=== PATIENT | female | born 1970 | race Caucasian/White ===

== ENCOUNTER 2018-01-02 12:46 | Emergency (ER) | payer OTHER ==
[~2018-01-02] VITALS: Ht 154.9 cm; Wt 68.0 kg
[~2018-01-02 12:46] MED LIST: NEURONTIN 300300 M1 PO; PHENERGAN 25 MG25 M1 PO; TAPAZOLE5 MG PO; TRAMADOL 50 MG50 MG PO; TRAZODONE 150150 M1 PO
[2018-01-02] MEDS ORDERED: AMLODIPINE BESY10 MG PO (12:57)
[2018-01-02 14:51] VITALS: BP 155/77
== END 2018-01-02 14:52 | disposition home or self-care (01) ==
LOC: M.ERS 12:46
DX: M79.605 Pain in left leg (principal); R03.0 Elevated blood-pressure reading, without diagnosis of hypertension; G25.81 Restless legs syndrome; F17.200 Nicotine dependence, unspecified, uncomplicated; Z90.49 Acquired absence of other specified parts of digestive tract; Z90.710 Acquired absence of both cervix and uterus; Z98.890 Other specified postprocedural states; Z88.6 Allergy status to analgesic agent

== ENCOUNTER → 2018-10-13 | Outpatient (CLI) | payer OTHER ==
[~2018-10-13] MED LIST changes: +AMLODIPINE BESY10 MG PO
== END ==
LOC: M.RAD 13:52
DX: Z12.31 Encounter for screening mammogram for malignant neoplasm of breast (principal)

== ENCOUNTER → 2019-09-10 | Outpatient (CLI) | payer OTHER | LOC: M.ULTRA 14:49 | DX: N60.12 Diffuse cystic mastopathy of left breast (principal); N60.11 Diffuse cystic mastopathy of right breast ==

== ENCOUNTER → 2019-11-19 | Outpatient (CLI) | payer OTHER ==
[~2019-11-19] MED LIST changes: +CYMBALTA20 MG PO; +NEURONTIN 300M300 M2 PO; +NEW BP MED; +NORCO 5-325 TA1 EAC1 PO; +OMEPRAZOLE40 MG PO; +PULMICORT0.5 MG/2 M; +REPATHA SU140 MG/1 M SUBQ; +VENTOLIN HFA 1818 GM INH; +ZANAFLEX4 M1 PO; +ZANTAC 150MG T150 M1 PO
== END ==
LOC: M.PC 11:05
DX: M47.812 Spondylosis without myelopathy or radiculopathy, cervical region (principal); M47.816 Spondylosis without myelopathy or radiculopathy, lumbar region; F11.90 Opioid use, unspecified, uncomplicated

== ENCOUNTER → 2020-01-02 | Outpatient (CLI) | payer OTHER | LOC: M.PC 04:20 | DX: M47.812 Spondylosis without myelopathy or radiculopathy, cervical region (principal); M47.816 Spondylosis without myelopathy or radiculopathy, lumbar region; M18.11 Unilateral primary osteoarthritis of first carpometacarpal joint, right hand ==

== ENCOUNTER → 2020-03-05 | Outpatient (CLI) | payer OTHER | LOC: M.PC 01:47 | DX: M47.812 Spondylosis without myelopathy or radiculopathy, cervical region (principal); M47.816 Spondylosis without myelopathy or radiculopathy, lumbar region; M79.641 Pain in right hand; M19.041 Primary osteoarthritis, right hand; F17.210 Nicotine dependence, cigarettes, uncomplicated; F10.10 Alcohol abuse, uncomplicated; Z79.899 Other long term (current) drug therapy ==

== ENCOUNTER → 2020-04-02 | Outpatient (CLI) | payer OTHER ==
[~2020-04-02] MED LIST changes: +TOPROL XL50 MG PO
== END | disposition home or self-care (01) ==
LOC: M.PC 04:39
PROVIDERS: ATTEND Physical Medicine & Rehabilitation
DX: M47.812 Spondylosis without myelopathy or radiculopathy, cervical region (principal); G89.29 Other chronic pain; F17.210 Nicotine dependence, cigarettes, uncomplicated; Z98.890 Other specified postprocedural states; Z90.49 Acquired absence of other specified parts of digestive tract; Z90.710 Acquired absence of both cervix and uterus; Z79.899 Other long term (current) drug therapy

== ENCOUNTER → 2020-04-16 | Outpatient (CLI) | payer OTHER ==
[~2020-04-16] MED LIST changes: +NORCO 5-325 TA1 EAC2 PO
== END ==
LOC: M.PC 03:33
PROVIDERS: ATTEND Physical Medicine & Rehabilitation
DX: M43.16 Spondylolisthesis, lumbar region (principal); M47.816 Spondylosis without myelopathy or radiculopathy, lumbar region; M51.36 Other intervertebral disc degeneration, lumbar region; M79.641 Pain in right hand; Z88.8 Allergy status to other drugs, medicaments and biological substances; Z79.899 Other long term (current) drug therapy

== ENCOUNTER → 2020-05-14 | Outpatient (CLI) | payer OTHER | LOC: M.PC 05:18 | PROVIDERS: ATTEND Physical Medicine & Rehabilitation | DX: M43.16 Spondylolisthesis, lumbar region (principal); M51.36 Other intervertebral disc degeneration, lumbar region; M47.816 Spondylosis without myelopathy or radiculopathy, lumbar region; M79.641 Pain in right hand; F10.10 Alcohol abuse, uncomplicated; F17.210 Nicotine dependence, cigarettes, uncomplicated; Z79.899 Other long term (current) drug therapy ==

== ENCOUNTER → 2020-07-09 | Outpatient (CLI) | payer OTHER | LOC: M.PC 08:40 | PROVIDERS: ATTEND Physical Medicine & Rehabilitation | DX: M43.17 Spondylolisthesis, lumbosacral region (principal); M47.816 Spondylosis without myelopathy or radiculopathy, lumbar region; M47.812 Spondylosis without myelopathy or radiculopathy, cervical region; M51.36 Other intervertebral disc degeneration, lumbar region; M13.841 Other specified arthritis, right hand; Z79.891 Long term (current) use of opiate analgesic; Z79.899 Other long term (current) drug therapy ==

== ENCOUNTER → 2020-07-30 | Outpatient (CLI) | payer OTHER | END | disposition home or self-care (01) | LOC: M.PC 09:58 | PROVIDERS: ATTEND Physical Medicine & Rehabilitation | DX: M54.5 Low back pain (principal); M47.816 Spondylosis without myelopathy or radiculopathy, lumbar region; G89.29 Other chronic pain; Z98.890 Other specified postprocedural states; Z90.710 Acquired absence of both cervix and uterus; Z98.51 Tubal ligation status; Z79.899 Other long term (current) drug therapy; Z79.891 Long term (current) use of opiate analgesic ==

== ENCOUNTER → 2020-08-06 | Outpatient (CLI) | payer OTHER | END | disposition home or self-care (01) | LOC: M.PC 10:09 | PROVIDERS: ATTEND Physical Medicine & Rehabilitation | DX: M47.816 Spondylosis without myelopathy or radiculopathy, lumbar region (principal); M25.531 Pain in right wrist; Z98.890 Other specified postprocedural states; Z79.899 Other long term (current) drug therapy; Z88.8 Allergy status to other drugs, medicaments and biological substances ==

== ENCOUNTER → 2020-08-20 | Outpatient (CLI) | payer OTHER | LOC: M.PC 10:19 | PROVIDERS: ATTEND Physical Medicine & Rehabilitation | DX: M43.17 Spondylolisthesis, lumbosacral region (principal); M51.36 Other intervertebral disc degeneration, lumbar region; M47.816 Spondylosis without myelopathy or radiculopathy, lumbar region; M47.812 Spondylosis without myelopathy or radiculopathy, cervical region; M53.3 Sacrococcygeal disorders, not elsewhere classified; F17.200 Nicotine dependence, unspecified, uncomplicated; F10.10 Alcohol abuse, uncomplicated; Z79.899 Other long term (current) drug therapy ==

== ENCOUNTER → 2020-09-08 | Outpatient (CLI) | payer OTHER | END | disposition home or self-care (01) | LOC: M.PC 10:26 | PROVIDERS: ATTEND Physical Medicine & Rehabilitation | DX: M53.3 Sacrococcygeal disorders, not elsewhere classified (principal); M54.5 Low back pain; M51.16 Intervertebral disc disorders with radiculopathy, lumbar region; M47.26 Other spondylosis with radiculopathy, lumbar region; M43.16 Spondylolisthesis, lumbar region; Z98.890 Other specified postprocedural states; Z79.899 Other long term (current) drug therapy ==

== ENCOUNTER → 2020-10-15 | Outpatient (CLI) | payer OTHER | END | disposition home or self-care (01) | LOC: M.PC 09:34 | PROVIDERS: ATTEND Physical Medicine & Rehabilitation | DX: M53.3 Sacrococcygeal disorders, not elsewhere classified (principal); M46.1 Sacroiliitis, not elsewhere classified; M47.898 Other spondylosis, sacral and sacrococcygeal region; M54.5 Low back pain; F17.210 Nicotine dependence, cigarettes, uncomplicated; Z98.890 Other specified postprocedural states; Z79.899 Other long term (current) drug therapy; Z90.49 Acquired absence of other specified parts of digestive tract; Z98.51 Tubal ligation status; Z90.710 Acquired absence of both cervix and uterus ==

== ENCOUNTER → 2020-11-26 | Outpatient (CLI) | payer OTHER ==
[~2020-11-26] MED LIST changes: +HYDROCODON-ACE1 EAC7 PO
== END ==
LOC: M.LAB 07:56
PROVIDERS: ATTEND Physical Medicine & Rehabilitation
DX: Z01.812 Encounter for preprocedural laboratory examination (principal); Z20.822 Contact with and (suspected) exposure to COVID-19

== ENCOUNTER → 2020-12-08 | Outpatient (CLI) | payer OTHER ==
[~2020-12-08] MED LIST changes: +HYDROCODON-ACE1 EAC8 PO
== END ==
LOC: M.PC 08:30
PROVIDERS: ATTEND Physical Medicine & Rehabilitation
DX: M51.36 Other intervertebral disc degeneration, lumbar region (principal); M70.61 Trochanteric bursitis, right hip; M19.90 Unspecified osteoarthritis, unspecified site; M53.3 Sacrococcygeal disorders, not elsewhere classified; M47.812 Spondylosis without myelopathy or radiculopathy, cervical region; M43.16 Spondylolisthesis, lumbar region; Z88.8 Allergy status to other drugs, medicaments and biological substances; Z79.899 Other long term (current) drug therapy

== ENCOUNTER → 2020-12-10 | Outpatient (CLI) | payer OTHER | END | disposition home or self-care (01) | LOC: M.PC 12:35 | PROVIDERS: ATTEND Physical Medicine & Rehabilitation | DX: M70.61 Trochanteric bursitis, right hip (principal); M19.041 Primary osteoarthritis, right hand; M25.551 Pain in right hip; M79.641 Pain in right hand; F17.210 Nicotine dependence, cigarettes, uncomplicated; Z98.890 Other specified postprocedural states; Z79.899 Other long term (current) drug therapy; Z90.710 Acquired absence of both cervix and uterus; Z90.49 Acquired absence of other specified parts of digestive tract ==

== ENCOUNTER → 2020-12-22 | Outpatient (CLI) | payer OTHER | LOC: M.PC 10:41 | PROVIDERS: ATTEND Physical Medicine & Rehabilitation | DX: M70.61 Trochanteric bursitis, right hip (principal); M19.032 Primary osteoarthritis, left wrist; F17.200 Nicotine dependence, unspecified, uncomplicated ==

== ENCOUNTER → 2020-12-31 | Outpatient (CLI) | payer OTHER ==
--- NOTE | 2020-12-31 16:44 | EXE ---
[place] [address] STRESS ECHOCARDIOGRAM Name: VANESA CACERES Servando Room: [facility]#: [id number] Admission: 12/31/20 Attend Phys: Shiva Nelson, Discharge: Date of : 72 Date of Service: 12/31/20 1644 Report #: [id number] THIS REPORT FOR: cc: Isrrael Pagan,Isrrael Cabrera,Shaheed Reyes MD [facility] ~ APPROVED REPORT Study performed: 12/31/2020 15:15:09 Exam: Stress Echocardiogram Indication: Chest pain , Dyspnea Patient Location: Out-Patient Stress Nurse: Lizbeth Brandon RN Supervising Physician: Shaheed Escobedo MD Ht: 5 ft 1 in HR: 95 bpm BP: 134/76 mmHg Medical History Cardiac Risk Factors: Hyperlipidemia, HTN, Tobacco History (Current/Recent) Procedure The patient underwent an Exercise Stress Test using the Roland Protocol. Blood pressure, heart rate, and EKG were monitored. An Echocardiogram was performed by automotive engineering technician in four stages in quad fashion. At peak stress, four selected images were obtained and placed side by side with resting images for comparison. Stress Test Details Stress Test: Exercise stress testing was performed using a Roland protocol. HR Resting HR: 95 bpm Max Heart Rate (APMHR): 171 bpm Max HR Achieved: 150 bpm Target HR (85% APMHR): 145 bpm % of APMHR: 87 Recovery HR: 110 bpm HR response to stress: Normal HR response to stress BP Resting BP: 134/76 mmHg Max BP: 174/89 mmHg Recovery BP: 150/94 [place] [address] STRESS ECHOCARDIOGRAM Name: VANESA CACERES Servando Room: [facility]#: [id number] Admission: 12/31/20 Attend Phys: Shiva Nelson, Discharge: Date of : 72 Date of Service: 12/31/20 1644 Report #: [id number] BP response to stress: Normal blood pressure response to stress. ECG Resting ECG: Sinus Rhythm, nonspecific ST-T abnormalities Stress ECG: Sinus Rhythm, nonspecific ST-T abnormalities ST Change: Upsloping ST depression Maximum ST Deviation: 1 mm Arrhythmia: None Recovery ECG: Sinus Rhythm, nonspecific ST-T abnormalities Recovery ST Change: Upsloping ST depression Recovery ST Deviation: 0.5 mm Recovery Arrhythmia: None Clinical Reason for Termination: Dyspnea, Fatigue,, Leg pain Exercise duration: 9 min 00 sec Highest Stage Achieved: Stage 3: 3.4 mph at 14% grade. Exercise capacity: 10.16 METs Pre-Stress Echo The resting Echocardiogram showed normal left ventricular contractility with an estimated Ejection Fraction of about 60-65%. Post-Stress Echo The stress Echocardiogram showed normal left ventricular contractility with an estimated Ejection Fraction of about >70%. Compared to rest, there were no stress-induced wall motion abnormalities. Conclusion Clinical Response: Non-ischemic Exercise Capacity: Average Stress ECG Response: Indeterminant Stress Echo Images: Non-ischemic low risk stress echo for predicting future cardiac events. Other Information Study Quality: [place] [address] STRESS ECHOCARDIOGRAM Name: VANESA CACERES Room: [facility]#: [id number] Admission: 12/31/20 Attend Phys: Shiva Nelson, Discharge: Date of : 72 Date of Service: 12/31/201643 Report #: [id number] <Conclusion> low risk stress echo for predicting future cardiac events. <ELECTRONICALLY SIGNED> By: Shaheed Escobedo MD, FACC 12/31/201643 43 43 Shaheed Escobedo MD, FACC /INF
== END ==
LOC: M.CRD 14:28
PROVIDERS: ATTEND Internal Medicine Cardiovascular Disease
DX: I10 Essential (primary) hypertension (principal); E78.2 Mixed hyperlipidemia; I65.21 Occlusion and stenosis of right carotid artery

== ENCOUNTER → 2021-01-21 | Outpatient (CLI) | payer OTHER | END | disposition home or self-care (01) | LOC: M.PC 10:30 | PROVIDERS: ATTEND Physical Medicine & Rehabilitation | DX: M16.11 Unilateral primary osteoarthritis, right hip (principal); M25.551 Pain in right hip; G89.29 Other chronic pain; Z98.890 Other specified postprocedural states; Z79.899 Other long term (current) drug therapy ==

== ENCOUNTER → 2021-02-09 | Outpatient (CLI) | payer OTHER | LOC: M.PC 10:05 | PROVIDERS: ATTEND Physical Medicine & Rehabilitation | DX: Z51.81 Encounter for therapeutic drug level monitoring (principal); M25.551 Pain in right hip; M70.61 Trochanteric bursitis, right hip; M25.532 Pain in left wrist; M79.641 Pain in right hand; M19.041 Primary osteoarthritis, right hand; M54.5 Low back pain; M54.2 Cervicalgia; M47.812 Spondylosis without myelopathy or radiculopathy, cervical region; M47.816 Spondylosis without myelopathy or radiculopathy, lumbar region; M43.17 Spondylolisthesis, lumbosacral region; F17.200 Nicotine dependence, unspecified, uncomplicated; F11.20 Opioid dependence, uncomplicated; Z88.8 Allergy status to other drugs, medicaments and biological substances; Z79.899 Other long term (current) drug therapy ==

== ENCOUNTER → 2021-04-13 | Outpatient (CLI) | payer OTHER ==
[~2021-04-13] MED LIST changes: +LISINOPRIL-HCT1 EACH PO; -NEW BP MED; +TOPROL XL100 MG PO; -TOPROL XL50 MG PO
== END | disposition home or self-care (01) ==
LOC: M.PC 10:17
PROVIDERS: ATTEND Physical Medicine & Rehabilitation
DX: M25.521 Pain in right elbow (principal); M77.8 Other enthesopathies, not elsewhere classified; M65.88 Other synovitis and tenosynovitis, other site; F17.210 Nicotine dependence, cigarettes, uncomplicated; Z98.890 Other specified postprocedural states; Z79.899 Other long term (current) drug therapy; Z90.710 Acquired absence of both cervix and uterus; Z90.49 Acquired absence of other specified parts of digestive tract; Z98.51 Tubal ligation status

== ENCOUNTER → 2021-05-13 | Outpatient (CLI) | payer OTHER ==
[~2021-05-13] MED LIST changes: +NORCO5 PO
== END ==
LOC: M.PC 09:30
PROVIDERS: ATTEND Physical Medicine & Rehabilitation
DX: M47.816 Spondylosis without myelopathy or radiculopathy, lumbar region (principal); M43.16 Spondylolisthesis, lumbar region; M70.60 Trochanteric bursitis, unspecified hip; M19.032 Primary osteoarthritis, left wrist; M19.041 Primary osteoarthritis, right hand; M54.2 Cervicalgia; M54.5 Low back pain

== ENCOUNTER → 2021-06-03 | Outpatient (CLI) | payer OTHER | END | disposition home or self-care (01) | LOC: M.PC 09:50 | PROVIDERS: ATTEND Physical Medicine & Rehabilitation | DX: M25.551 Pain in right hip (principal); M70.61 Trochanteric bursitis, right hip; M19.041 Primary osteoarthritis, right hand; F17.210 Nicotine dependence, cigarettes, uncomplicated; F11.20 Opioid dependence, uncomplicated; Z98.890 Other specified postprocedural states; Z79.899 Other long term (current) drug therapy; Z90.710 Acquired absence of both cervix and uterus; Z98.51 Tubal ligation status ==

== ENCOUNTER → 2021-06-24 | Outpatient (CLI) | payer OTHER | LOC: M.PC 10:30 | PROVIDERS: ATTEND Physical Medicine & Rehabilitation | DX: M70.61 Trochanteric bursitis, right hip (principal); M19.032 Primary osteoarthritis, left wrist; M47.817 Spondylosis without myelopathy or radiculopathy, lumbosacral region; M43.17 Spondylolisthesis, lumbosacral region; Z79.891 Long term (current) use of opiate analgesic; Z90.710 Acquired absence of both cervix and uterus; Z88.6 Allergy status to analgesic agent; Y93.9 Activity, unspecified ==

== ENCOUNTER → 2021-07-17 | Outpatient (CLI) | payer OTHER | LOC: M.LAB 12:14 | PROVIDERS: ATTEND Physical Medicine & Rehabilitation | DX: Z01.812 Encounter for preprocedural laboratory examination (principal); Z20.822 Contact with and (suspected) exposure to COVID-19 ==

== ENCOUNTER → 2021-07-20 | Outpatient (CLI) | payer OTHER | LOC: M.LAB 05:30 | PROVIDERS: ATTEND Anesthesiology | DX: Z01.812 Encounter for preprocedural laboratory examination (principal); Z20.822 Contact with and (suspected) exposure to COVID-19; E87.6 Hypokalemia ==

== ENCOUNTER → 2021-08-10 | Outpatient (CLI) | payer OTHER | LOC: M.PC 10:30 | PROVIDERS: ATTEND Physical Medicine & Rehabilitation | DX: M47.814 Spondylosis without myelopathy or radiculopathy, thoracic region (principal); M25.551 Pain in right hip; M25.521 Pain in right elbow; M65.841 Other synovitis and tenosynovitis, right hand; M19.032 Primary osteoarthritis, left wrist; M47.812 Spondylosis without myelopathy or radiculopathy, cervical region; M47.816 Spondylosis without myelopathy or radiculopathy, lumbar region; M51.26 Other intervertebral disc displacement, lumbar region; M43.16 Spondylolisthesis, lumbar region; Z87.891 Personal history of nicotine dependence ==

== ENCOUNTER → 2021-09-01 | Outpatient (CLI) | payer OTHER | LOC: M.RAD 12:50 | PROVIDERS: ATTEND Physical Medicine & Rehabilitation | DX: M54.6 Pain in thoracic spine (principal) ==

== ENCOUNTER → 2021-09-16 | Outpatient (CLI) | payer OTHER | END | disposition home or self-care (01) | LOC: M.PC 09:47 | PROVIDERS: ATTEND Physical Medicine & Rehabilitation | DX: M19.042 Primary osteoarthritis, left hand (principal); M25.542 Pain in joints of left hand; G89.29 Other chronic pain; F17.210 Nicotine dependence, cigarettes, uncomplicated; Z98.890 Other specified postprocedural states; Z79.899 Other long term (current) drug therapy; Z90.710 Acquired absence of both cervix and uterus; Z90.49 Acquired absence of other specified parts of digestive tract; Z98.51 Tubal ligation status ==

== ENCOUNTER → 2021-09-30 | Outpatient (CLI) | payer OTHER | END | disposition home or self-care (01) | LOC: M.PC 09:46 | PROVIDERS: ATTEND Physical Medicine & Rehabilitation | DX: M25.521 Pain in right elbow (principal); M77.11 Lateral epicondylitis, right elbow; F17.210 Nicotine dependence, cigarettes, uncomplicated; Z98.890 Other specified postprocedural states; Z79.899 Other long term (current) drug therapy; Z90.710 Acquired absence of both cervix and uterus; Z98.51 Tubal ligation status; Z88.8 Allergy status to other drugs, medicaments and biological substances ==

== ENCOUNTER → 2021-10-06 | Outpatient (CLI) | payer OTHER | LOC: M.RAD 09-22 09:43 | PROVIDERS: ATTEND Family Medicine | DX: R92.2 Inconclusive mammogram (principal) ==

== ENCOUNTER → 2021-11-16 | Outpatient (CLI) | payer OTHER | LOC: M.PC 09:22 | PROVIDERS: ATTEND Physical Medicine & Rehabilitation | DX: M47.814 Spondylosis without myelopathy or radiculopathy, thoracic region (principal); M25.551 Pain in right hip; M25.521 Pain in right elbow; M19.032 Primary osteoarthritis, left wrist; M79.641 Pain in right hand; M53.3 Sacrococcygeal disorders, not elsewhere classified; M47.812 Spondylosis without myelopathy or radiculopathy, cervical region; M47.816 Spondylosis without myelopathy or radiculopathy, lumbar region; M51.26 Other intervertebral disc displacement, lumbar region; M43.16 Spondylolisthesis, lumbar region; Z88.8 Allergy status to other drugs, medicaments and biological substances ==

== ENCOUNTER → 2021-12-02 | Outpatient (CLI) | payer OTHER ==
[~2021-12-02] MED LIST changes: +CLARITIN10 M3; +COLD MULTI SYM; +FLAGYL375 MG; +LEVOFLOXACIN500 MG; +SINGULAIR5 MG
== END ==
LOC: M.PC 10:06
PROVIDERS: ATTEND Physical Medicine & Rehabilitation
DX: M25.521 Pain in right elbow (principal); M25.551 Pain in right hip; M54.50 Low back pain, unspecified; M54.6 Pain in thoracic spine; M47.814 Spondylosis without myelopathy or radiculopathy, thoracic region; M25.532 Pain in left wrist; M25.541 Pain in joints of right hand; M54.2 Cervicalgia; K85.90 Acute pancreatitis without necrosis or infection, unspecified